=== PATIENT | male | born 1990 | race Caucasian/White ===

== ENCOUNTER 2023-07-04 21:03 | Emergency (ER) | payer MEDICAID, SELFPAY ==
[2023-07-04 21:23] VITALS: BP 137/75; PULSE 78; RESP 20; TEMP 36.6; O2SAT 100
--- NOTE | 2023-07-04 21:29 | ECG_ITS ---
Measurements Intervals [place] Rate: 75 P: 69 IA: 120 QRS: 75 QRSD: 88 T: 62 QT: 355 QTc: 397 Interpretive Statements SINUS RHYTHM WITH MARKED SINUS ARRHYTHMIA POSSIBLE RIGHT VENTRICULAR CONDUCTION DELAY [RSR (QR) IN V1/V2] BORDERLINE ECG NO PREVIOUS ECG AVAILABLE FOR COMPARISON Electronically Signed On 07-05-2023 11:52:55 LAB SUPPORT SERVICE TECH by Chandan Roy M.D.
--- NOTE | 2023-07-04 21:35 | PC.NURSE ---
Pt states they have a weapon with them. This RN contacted security to remove weapon from pt belongings. hog worker, Candace contacted house calls nurse to ask where appropriate placement for knife would be. nurse supervisor stated best place to keep pt weapon would be Jude Head's office. ED security was given knife to handle pt weapon. Pt belongings were searched for other weapons by security.
--- NOTE | 2023-07-04 21:54 | PC.NURSE ---
Upon pt giving blood to have blood work evaluated pt passed out and started groaning and refusing to have blood drawn. This Rn explained to pt why blood draw was necessary and that he cannot be medically cleared from [facility] until blood was drawn. Pt stated that he needed a minute and couldnt give blood right now . This RN explained to pt that he could have a minute but this RN would be back to try again. EDP Dr. Graves and made aware.
[2023-07-04 22:02] LABS: Appearance Urine Clear (Clear); Bilirubin Urine Negative (Negative); Blood Urine Negative (Negative); Color Urine Yellow (Yellow); Glucose Urine UA Negative (Negative); Ketones Urine Negative (Negative); Leukocyte Esterase Ur Negative LEU/UL (Negative); Nitrate Urine Negative (Negative); Protein Urine Negative (Negative)
[2023-07-04 22:13] LABS: Add Urine Microscopic? NO
[2023-07-04 22:15] LABS: Alanine Aminotransferase 15 U/L (6-50); Albumin Level 4.7 g/dL (3.5-5.1); Alkaline Phosphatase 72 U/L (38-126); Anion Gap 12 mmol/L (8-16); Aspartate Amino Transferase 22 U/L (17-59); Bilirubin,Total 0.5 mg/dL (0.2-1.3); Blood Urea Nitrogen 13 mg/dL (9-20); Calcium 9.2 mg/dL (8.4-10.2); Carbon Dioxide 27 mmol/L (22-30); Chloride 102 mmol/L (98-107); Estimated CRCL calculation 122 ml/min; Estimated Glomerular Filt Rate > 60; Glucose 91 mg/dL (65-110); Potassium 4.4 mmol/L (3.4-5.0); Sodium 141 mmol/L (137-145)
--- NOTE | 2023-07-04 22:17 | ED.GENADULT ---
HPI - General Adult General Chief complaint: Psychiatric Symptoms <Kirk Graves MD - Last Filed: 07/04/23 23:21> Stated complaint: SI <Kirk Graves MD - Last Filed: 07/04/23 23:21> Time Seen by Provider: 07/04/23 21:18 <Kirk Graves MD - Last Filed: 07/04/23 23:21> History of Present Illness HPI narrative: patient is a year-old gentleman who presents emerged from with chief complaint of suicidal ideation. The patient reports he has prior history of depression reports that he has been feeling more depressed lately and has been having thoughts of hurting himself. The patient has a plan to jump off a bridge the patient called EMS when he was in [facility] and was transported to our facility. The patient has had prior hospitalizations both at [facility] and also a [facility]. Patient also has history of methamphetamine use last used approximately 2 weeks ago <Kirk Graves MD - Last Filed: 07/04/23 23:21> Related Data Allergies/adverse reactions: Allergies Allergy/AdvReac Type Severity Reaction Status Date / Time No Known Allergies Allergy Unverified 01/01/19 18:01 <Kirk Graves MD - Last Filed: 07/04/23 23:21> Review of Systems Review of Systems: A 10 system review of systems was completed on the patient and is negative except for what is stated in the HPI. Nursing and ancillary documentation was reviewed. <Kirk Graves MD - Last Filed: 07/04/23 23:21> PMFSH Social History Social History: Social History Substance use type: marijuana, amphetamines and methamphetamine <Kirk Graves MD - Last Filed: 07/04/23 23:21> Exam Narrative: GENERAL: Well-appearing, well-nourished, and in no acute distress. HEAD: Normocephalic, atraumatic. EYES: PERRLA and EOMI. ENT: Nares clear, no rhinorrhea or epistaxis. Mucous membranes moist. NECK: Supple. CHEST: Clear to auscultation. No respiratory distress. HEART: Regular rate and rhythm. No murmur heard. Normal peripheral pulses. ABDOMEN: Soft, nontender, nondistended, normal active bowel sounds. EXTREMITIES: Normal range of motion. No edema. SKIN: Warm, dry, no rash. NEURO: No focal deficits. Alert and oriented x3. PSYCH: depressed mood and affect. <Kirk Graves MD - Last Filed: 07/04/23 23:21> Course Course Emergency Course: Patient accepted by Dr. Gamez at [facility]. No issues during my care of the patient. <Moe Garcia MD - Last Filed: 07/06/23 16:12> Reevaluation(s) Reevaluation #1: PAtient has been cooperative. He asked for nicotine patch and it was ordered. Care turned over to DR. Graves <Radha Blue MD - Last Filed: 07/05/23 19:13> Date: 07/05/23 <Radha Blue MD - Last Filed: 07/05/23 19:13> Time: 19:12 <Radha Blue MD - Last Filed: 07/05/23 19:13> Vital Signs Vital signs: Vital Signs Temperature 97.8 F 07/04/23 21:23 Pulse Rate 78 07/04/23 21:23 Respiratory Rate 20 07/04/23 21:23 Blood Pressure 137/75 07/04/23 21:23 Pulse Oximetry 100 07/04/23 21:23 Oxygen Delivery Room Air 07/04/23 21:23 Temperature 97.8 F 07/06/23 15:25 Pulse Rate 68 07/06/23 15:25 Respiratory Rate 18 07/06/23 15:25 Blood Pressure 103/62 07/06/23 15:25 Pulse Oximetry 99 07/06/23 15:25 Oxygen Delivery Room Air 07/04/23 21:23 <Kirk Graves MD - Last Filed: 07/04/23 23:21> Vital Signs Temperature 97.8 F 07/04/23 21:23 Pulse Rate 78 07/04/23 21:23 Respiratory Rate 20 07/04/23 21:23 Blood Pressure 137/75 07/04/23 21:23 Pulse Oximetry 100 07/04/23 21:23 Oxygen Delivery Room Air 07/04/23 21:23 Temperature 97.8 F 07/06/23 15:25 Pulse Rate 68 07/06/23 15:25 Respiratory Rate 18 07/06/23 15:25 Blood Pressure 103/62 07/06/23 15:25 P
[2023-07-04 22:18] LABS: Basophils Absolute Auto 0.1 K/mm3 (0.0-0.1); Basophils Percent Auto 0.5 % (0.2-1.2); Eosinophils Absolute Auto 0.6 K/mm3 (0-0.3); Eosinophils Percent Auto 4.9 % (0-4.4); Hematocrit 45.7 % (42.0-52.0); Hemoglobin 14.7 g/dL (14.0-18.0); Immature Granulocyte Absolute 0.04 K/mm3 (0.00-0.031); Immature Granulocyte Percent A 0.3 % (0-0.5); Lymphocytes Absolute Auto 2.38 K/mm3 (0.9-3.2); Lymphocytes Percent Auto 20.4 % (18.3-44.2); Mean Corpuscular HGB Conc 32.2 g/dl (32-36); Mean Corpuscular Hemoglobin 31.3 pg (26-34); Mean Corpuscular Volume 97.4 fl (80-100); Mean Platelet Volume 10.4 fl (7.4-10.4); Monocytes Absolute Auto 1.3 K/mm3 (0.1-0.6); Monocytes Percent Auto 11.1 % (2.6-8.5); Neutrophils Absolute Auto 7.3 K/mm3 (1.3-6.7); Neutrophils Percent Auto 62.8 % (45.5-73.1); Platelet Count Result 271 k/mm3 (150-375); Red Blood Count 4.69 M/mm3 (4.6-6.20); Red Cell Distribution Width 13.1 % (11.5-14.5); White Blood Count 11.7 K/mm3 (4.5-10.0)
[2023-07-04 22:19] LABS: Amphetamine Screen Urine Negative (Negative); Barbiturate Screen Urine Negative (Negative); Benzodiazepines Screen Urine Negative (Negative); Cannabinoid Screen Urine Positive (Negative); Cocaine Screen Urine Negative (Negative); Methadone Screen Urine Negative (Negative); Opiate Screen Urine Negative (Negative); Phencyclidine Screen Urine Negative (Negative)
[2023-07-04 22:25] LABS: Acetaminophen < 10 ug/mL (10-30); Ethanol < 10 mg/dL (<10); Salicylate < 1.0 mg/dL (2-20)
[2023-07-04 22:55] LABS: Influenza A QL RT-PCR Negative (Negative); Influenza B QL RT-PCR Negative (Negative); SARS-CoV-2 RNA PCR Negative (Negative)
--- NOTE | 2023-07-05 07:50 | PC.NURSE ---
Precautionary breakfast tray ordered
[2023-07-05] MEDS: NICOTINE (*PBKC) 21 MG PATCH 1 PATCH TRANSDERM (19:10)
--- NOTE | 2023-07-05 19:11 | PC.NURSE ---
nicotine patch applied @1910 to the back of LEFT upper arm.
[2023-07-05 23:45] VITALS: BP 116/59; PULSE 73; RESP 15; TEMP 36.7; O2SAT 100
[2023-07-06 07:30] VITALS: BP 116/59; PULSE 60; RESP 16; TEMP 36.6; O2SAT 100
[2023-07-06 10:24] VITALS: BP 105/61; PULSE 74; RESP 18; TEMP 36.8; O2SAT 99
[2023-07-06 15:25] VITALS: BP 103/62; PULSE 68; RESP 18; TEMP 36.6; O2SAT 99
--- NOTE | 2023-07-06 17:15 | PC.NURSE ---
Report called to field marketer at [phone]. pt is accepted and will arrange transport per ems.
[2023-07-06 19:36] VITALS: BP 106/71; PULSE 72; RESP 18; O2SAT 98
--- NOTE | 2023-07-06 19:38 | PC.NURSE ---
Assumed care of pt from SCARLETT Pelayo at this time.
--- NOTE | 2023-07-06 22:34 | PC.NURSE ---
Belongings given to EMS. Pt to not give bags to pt. Pt wanting his knife. Pt educated he can come get rest of belongings after he is dc from [facility].
== END 2023-07-06 22:34 ==
PROVIDERS: Emergency Provider Emergency Medicine; PCP Emergency Medicine
DX: F32.A Depression, unspecified (principal); R45.851 Suicidal ideations; Z11.52 Encounter for screening for COVID-19; R94.31 Abnormal electrocardiogram [ECG] [EKG]
CPT/HCPCS: 36415; 80053; 80307; 81003; 84443; 85025; 87636; 93005; 99285; A9270